=== PATIENT | male | born 1940 | race Caucasian/White ===

== ENCOUNTER 2017-06-08 08:29 | Inpatient (IN) | payer OTHER, MEDICARE ==
[2017-05-18 17:20] LABS: PLATELET COUNT 156 10^3/uL (150-400)
[~2017-06-08 08:29] MED LIST: ROPIVACAINE 0.2% 80 MG, EPINEPHrine 0.2 MG, KETOROLAC TROMETHAMINE 30 MG in SYRINGE 0 ML IU ONE; TRANEXAMIC ACID 3,000 MG in NS 50 ML IRR ONE; VANCOMYCIN 1.25 GM in D5W 250 ML IV ONE; VANCOMYCIN PHARMACY TO DOSE MISC ONE
[2017-06-08] MEDS ORDERED: TRANEXAMIC ACID 3,000 MG/50 ML BAG IRR ONE (08:59)
--- NOTE | 2017-06-08 09:34 | PDHPUP ---
History & Physical Update H&P update statement: This history and physical update is based on an assessment of the patient which was completed after admission or registration (within 24 hours), but prior to the surgery/procedure. H&P update: H&P reviewed & patient examined, no change in patient's condition since H&P completed
--- NOTE | 2017-06-08 09:36 | PDANEPAE ---
ANE History of Present Illness 76 year old male w/ PMHx of CAD (has cardiac stents), A. Fib (following previous surgery, on Eliquis as outpatient - last dose on 06/04/2017), HTN, JAKI (w/ CPAP) and prior spine surgery x3 (confirmed hardware at L4 & L5) presents for right total hip arthroplasty. ANE Past Medical History - Cardiovascular History Hx Hypertension: Yes Hx Arrhythmias: Yes Hx Chest Pain: No Hx Coronary Artery / Peripheral Vascular Disease: Yes Hx CHF / Valvular Disease: No Hx Palpitations: No Cardiovascular History Comment: htn. afib x1 s/p back surgery. hyperlipidemia - Pulmonary History Hx COPD: No Hx Asthma/Reactive Airway Disease: No Hx Recent Upper Respiratory Infection: No Hx Oxygen in Use at Home: No Hx Sleep Apnea: Yes Sleep Apnea Screening Result - Last Documented: Positive Pulmonary History Comment: jaki positive- instructed pt to bring cpap to hospital - Neurologic History Hx Cerebrovascular Accident: No Hx Seizures: No Hx Dementia: No - Endocrine History Hx Diabetes: No - Renal History Hx Renal Disorders: No - Liver History Hx Hepatic Disorders: No - Neurological & Psychiatric Hx Hx Neurological and Psychiatric Disorders: No - Cancer History Hx Cancer: Yes Cancer History Comment: basal cell skin x1 - Congenital Disorder History Hx Congenital Disorders: No - GI History Hx Gastrointestinal Disorders: No - Other Health History Other Health History: wears glasses - Chronic Pain History Chronic Pain: Yes (right hip) - Surgical History Prior Surgeries: back surgeries x3. right knee torn meniscus repair. bilateral RTC repair. bilateral carpal tunnel. cardiac stents x 3 ANE Review of Systems Review of systems is: negative Review of Systems: - Exercise capacity Exercise capacity: >=4 METS METS (RN): 5 METS ANE Patient History - Allergies Allergies/Adverse Reactions: cefazolin [From Ancef] Allergy (Verified 06/08/17 09:53) Rash lincomycin HCl [From Lincocin] Allergy (Verified 06/08/17 09:53) cramps, severe bleeding and diarrhea sulfamethoxazole [From Bactrim] Allergy (Verified 06/08/17 10:41) erythema multiforma trimethoprim [From Bactrim] Allergy (Verified 06/08/17 09:53) erythema multiforma - Home Medications Home medications: home medication list seen and reviewed Home Medications: Cholecalciferol Vit D3 [Vitamin D3 (*)] 2,000 units PO BID 02/11/14 [Last Taken 12/20/17] Dutasteride [Avodart 0.5 MG (*)] 0.5 mg PO HS 02/11/14 [Last Taken 06/07/17 21: 00] Ezetimibe/Simvastatin [Vytorin 10-20 mg Tablet] 0.5 each PO HS 02/11/14 [Last Taken 06/07/17 21:00] Herbals/Supplements -Info Only 1 ea PO DAILY 02/11/14 [Last Taken 05/25/17] Multivitamins [Multivitamin (*)] 1 each PO DAILY 02/11/14 [Last Taken 05/25/17] Niacin ER [Niaspan 1000 mg (*)] 2,000 mg PO HS 02/11/14 [Last Taken 06/06/17] [place]ua-3 Fatty Acids [Fish Oil 1000 mg (*)] 3,000 mg PO DAILY 02/11/14 [Last Taken 05/25/17] Apixaban [Eliquis] 5 mg PO BID 05/11/17 [Last Taken 06/04/17] Aspirin [Aspirin 81mg (*)] 81 mg PO DAILY 05/11/17 [Last Taken 05/25/17] Doxazosin Mesylate [Cardura 1 MG (*)] 2 mg PO HS 05/11/17 [Last Taken 06/07/17 21:00] Hydrochlorothiazide [HCTZ (*)] 12.5 mg PO DAILY 05/11/17 [Last Taken 06/07/17 09 :00] Magnesium Hydroxide [Milk of Magnesia] 30 ml PO HS 05/11/17 [Last Taken 06/06/17 ] Olmesartan Medoxomil [Benicar 20 mg (*)] 40 mg PO DAILY 05/11/17 [Last Taken 07/24 09:00] amLODIPine BESYLATE [Norvasc 10 mg (*)] 10 mg PO HS 05/11/17 [Last Taken 21:00] - NPO status NPO Status: no food or drink >8 hours - Anes Hx Anes Hx: no prior problems - Smoking Hx Smoking Status: Former smoker Marijuana use: No - Family Anes Hx Family Anes Hx: neg - N/A Family Hx Anesthesia Complications: none ANE Labs/Vital Signs - Labs Result Diagrams: 05/18/17 16:41 12/13/17 16:41 - Vital Signs Vital Signs: reviewed preoperatively; see RN documention for details Height: 176.53 cm Weight: 86.183 kg ANE Physical Exam - Airway Neck exam: FROM Mallampati Score: Class 2 Mouth exam: normal dental/mouth exam - Pulmonary Pulmonary: no respiratory distress - Cardiovascular Cardiovascular: regular rate and rhythym - ASA Status ASA Status: III ANE Anesthesia Plan Anesthesia Plan: general endotracheal anesthesia (General as back-up plan if spinal unsuccessful given patient's prior history of spine surgery x 3.), MAC, spinal Total IV Anesthesia: No
[2017-06-08] MEDS ORDERED: ACETAMINOPHEN 325 MG TAB PO ONE (09:38)
[2017-06-08] MEDS ORDERED: FAMOTIDINE 20 MG TAB PO ONE (09:38)
[2017-06-08] MEDS ORDERED: DEXAMETHASONE 4 MG/ML VIAL IVP ONE (09:38)
[2017-06-08] MEDS ORDERED: LR 1,000 ML IV ONE (09:40)
[2017-06-08] MEDS ORDERED: LIDOCAINE 1% 2 ML INJ ID PRN (09:40)
[2017-06-08] MEDS ORDERED: MIDAZOLAM 2 MG/2 ML VIAL ONE (11:02)
[2017-06-08] MEDS ORDERED: MIDAZOLAM 2 MG/2 ML VIAL IVP ONE (11:03)
[2017-06-08] MEDS ORDERED: PROPOFOL/EMULSION 500 MG/50 ML BOTTLE IV ONE ×2 (11:06→11:57)
[2017-06-08] MEDS ORDERED: fentaNYL 100 MCG/2 ML INJ IVP PRN (12:13)
[2017-06-08] MEDS ORDERED: ONDANSETRON 4 MG/2 ML VIAL IVP PRN ×2 (12:13→12:47)
[2017-06-08] MEDS ORDERED: HYDROmorphONE/DILAUDID 1 MG/ML INJ IVP PRN (12:13)
[2017-06-08] MEDS ORDERED: NALOXONE HCL 0.4 MG/ML INJ IVP PRN (12:13)
[2017-06-08] MEDS ORDERED: PHENYLEPHRINE HCL 100 MCG/ML SYR IVP PRN (12:13)
[2017-06-08] MEDS ORDERED: LR 500 ML IV PRN (12:13)
[2017-06-08] MEDS ORDERED: LABETALOL HCL 5 MG/ML 20 ML MDV IVP PRN (12:13)
[2017-06-08] MEDS ORDERED: epHEDrine SULFATE 10 MG/ML SYR IVP PRN (12:13)
[2017-06-08] MEDS ORDERED: diphenhydrAMINE 25 MG CAP PO PRN (12:47)
[2017-06-08] MEDS ORDERED: MAGNESIUM HYDROXIDE 30 ML UDCUP PO PRN (12:47)
[2017-06-08] MEDS ORDERED: LACTULOSE 20 GM/30 ML UDCUP PO PRN (12:47)
[2017-06-08] MEDS ORDERED: METOCLOPRAMIDE 10 MG/2 ML VIAL IVP PRN (12:47)
[2017-06-08] MEDS ORDERED: DIPHENOXYLATE/ATROPINE LOMOTIL 1 TAB PO PRN (12:47)
[2017-06-08] MEDS ORDERED: BISACODYL 10 MG SUPP PR PRN (12:47)
[2017-06-08] MEDS ORDERED: TEMAZEPAM 15 MG CAP PO PRN (12:47)
[2017-06-08] MEDS ORDERED: PROMETHAZINE HCL 25 MG SUPPR PR PRN (12:47)
[2017-06-08] MEDS ORDERED: ONDANSETRON DISINTEGRATING 4 MG TAB PO PRN (12:47)
[2017-06-08] MEDS ORDERED: PROMETHAZINE HCL 25 MG/ML INJ IVP PRN (12:47)
[2017-06-08] MEDS ORDERED: POLYETHYLENE GLYCOL 3350 17 GM PKT PO PRN (12:47)
--- NOTE | 2017-06-08 12:47 | POSTOPPROG ---
Post Op Note Date of Operation: 06/08/17 Surgeon: Gillian Blair [employer] Manager: kristina blair Anesthesiologist: dr. mane Anesthesia: Spinal Pre-op Diagnosis: right hip OA Post-op Diagnosis: same Indication: R hip pain due to OA that failed conservative measures Procedure: R DYLAN ant approach Findings: severe hip OA Inf/Abcess present in the surg proc area at time of surgery?: No EBL: 100-500
[2017-06-08] MEDS: LR 1,000 ML IV SCH ×2 (14:30→23:55)
[2017-06-08] MEDS: CYCLOBENZAPRINE 10 MG TAB PO PRN (14:57)
[2017-06-08] MEDS: oxyCODONE IR 5 MG TAB PO PRN ×3 (15:44→23:58)
[2017-06-08 16:10] VITALS: RESP 16
[2017-06-08] MEDS: ACETAMINOPHEN 325 MG TAB PO SCH ×2 (17:52→23:55)
--- NOTE | 2017-06-08 18:25 | POSTANESTH ---
Post Anesthetic Evaluation Cardiovascular Status: Normal, Stable, Similar to Pre-Op Cond Respiratory Status: Normal, Stable, Similar to Pre-op Cond. Level of Consciousness/Mental Status: Can Participate in Eval, Alert and Oriented Pain Control: Adequate, Prn Tx Ordered Nausea/Vomiting Control: Adequate, Prn Tx Ordered Complications Possibly Related to Anesthesia: None Noted
[2017-06-08] MEDS: APIXABAN 5 MG TAB PO SCH (20:14)
[2017-06-08] MEDS: FAMOTIDINE 20 MG TAB PO SCH (20:14)
[2017-06-08] MEDS: SENNOSIDES/DOCUSATE SODIUM TAB PO SCH (20:15)
[2017-06-08] MEDS ORDERED: DUTASTERIDE 0.5 MG CAP PO SCH (21:00)
[2017-06-08] MEDS ORDERED: EZETIMIBE PO SCH (21:00)
[2017-06-08] MEDS ORDERED: SIMVASTATIN PO SCH (21:00)
[2017-06-08] MEDS ORDERED: NIACIN ER 1000 MG TAB.ER PO SCH (21:00)
[2017-06-08] MEDS ORDERED: DOXAZOSIN MESYLATE 1 MG TAB PO SCH (21:00)
[2017-06-08] MEDS ORDERED: VANCOMYCIN 1.25 GM in D5W 250 ML IV ONE (22:00)
[2017-06-08] MEDS ORDERED: VANCOMYCIN HCL/NORMAL SALINE 250 ML IV ONE (23:00)
[2017-06-09] MEDS: CYCLOBENZAPRINE 10 MG TAB PO PRN ×2 (01:58→10:20)
--- NOTE | 2017-06-09 05:16 | GOP ---
[f rep st] OPERATIVE REPORT DATE OF OPERATION: 06/08/2017 SURGEON: Db Beasley MD TYPING ELEMENT MACHINE OPERATOR: Madeline Beasley PA-C ANESTHESIA: Spinal. PREOPERATIVE DIAGNOSIS: Right hip osteoarthritis. POSTOPERATIVE DIAGNOSIS: Right hip osteoarthritis. PROCEDURE PERFORMED: Total hip arthroplasty with x-ray. FINDINGS: ESTIMATED BLOOD LOSS: 200 cc. INDICATIONS: The patient has progressively worsening arthritis of the hip which has failed medical m anagement. The patient understands the treatment options including continued non-operative care and has selected surgical intervention. The patient has decided to undergo total hip arthroplasty via th e direct anterior approach, understanding the risks of the procedure including, but not limited to, n eurovascular injury, infection, persistent pain, component wear and loosening, deep venous thrombosis , pulmonary embolism, limb length inequality, hip instability (including dislocation), and intra-oper ative fractures. DESCRIPTION OF PROCEDURE: After proper identification of the patient including verification and vipul ing the surgical site, the patient was brought to the operating room and placed in the supine positio n. All bony prominences were well padded. Anesthesia was induced without complication and intraveno us prophylactic antibiotics were administered prior to skin incision. The operative leg was placed in the Trumpf Arch table extension and the well leg in a Yellofin leg ho lder. The patient was prepped and draped in the usual sterile fashion. The C-arm was draped for int ra-operative fluoroscopy to check acetabular position, femoral component position including leg lengt h and femoral offset. Attention was then drawn to surgical exposure of the hip. An incision was made with a #10 Bard Kimball r blade starting 3 cm lateral and 3 cm distal to the anterior superior iliac spine measuring 8-10 cm and coursing distally toward the greater trochanter. The skin and subcutaneous tissues were divided sharply down to the fascia juan. The fascia juan was incised in line with the skin incision exposing the underlying tensor fascia juan muscle. The muscle was bluntly elevated from the fascia and the f irst extracapsular Cobra retractor was placed laterally at the junction of the superior femoral neck and greater trochanter. The lateral femoral circumflex vessels were identified, cauterized, and divi ded with the Aquamantys bipolar cautery. The deep investing fascia of the TFL was divided to allow p sheyla mobilization of the muscle preventing damage during the retraction. The reflected head of the rectus femoris muscle was elevated off the anterior hip capsule and a medial Cobra retractor was plac ed just proximal to the lesser trochanter. The anterior capsulotomy was made sharply from the superolateral acetabulum to the saddle junction of the superior femoral neck and greater trochanter, then coursing inferomedial towards the lesser troc hanter. The retractors were then placed in the intracapsular position for femoral neck osteotomy. C orresponding to pre-operative templating, the osteotomy was made with the oscillating saw carefully p rotecting the greater trochanter and soft tissues. The femoral head was removed from the acetabulum with a corkscrew and confirmed to be severely arthritic with exposed bone, deformity and osteophytes. Similar findings were confirmed in the acetabulum. The Arch table extension was then placed in 40 degrees external rotation. Attention was then drawn to the acetabular preparation. After placement of the anterior and posterio r Cobra retractors outside the labrum and intracapsular, the circumferential labrum was removed sharp ly. The foveal contents were then removed and hemostasis obtained with cautery. The first reamer selected was sized using the removed femoral head. Reaming began with medialization and then commenced in 2 mm increments at 45 degrees of abduction and 15 degrees of anteversion using fluoroscopic navigation. Reaming ceased 1 mm less than the definitive acetabular component and juana esponded to the pre-operative templating. The final acetabular component was inserted using fluorosc opy to achieve proper orientation yielding excellent purchase and stability in the acetabulum. The f inal acetabular liner was then placed and its seating confirmed. Attention was then turned to the femur. The Arch table extension was placed in extension and adducti on, delivering the osteotomized femoral neck into the wound. A 2-pronged femoral elevator was placed at the calcar and another at the tip of the greater trochanter. The posterolateral capsule was rele ased with cautery allowing mobilization of the femur lateral and anterior for preparation. The exter nal rotators were visualized and preserved. A curette and rongeur were used to open the starting poi nt for broaching. Serial broaching started with the #0 broach and ended with the broach that exhibit ed excellent fit in the proximal femur. A change in pitch during mallet strikes was accompanied by t he inability to advance the broach any further. The trial reduction was performed and fluoroscopic n avigation was utilized to check limb length. Adjustments were made to equalize limb length according ly. After the final trials were accepted they were removed and the wound was copiously lavaged. The femo ral component was seated to the same depth as the final broach and the femoral head was impacted onto the clean trunnion. The hip was then reduced for the final time and once more fluoroscopy was used to check that limb length equality was achieved. The wound was irrigated and closed in layers, the fascia juan with 2-0 Quill, the subcutaneous tissue with 2-0 Quill, and the skin with Dermabond. Sterile dressings were applied. Final sharps and spon ge counts were accurate. The patient was then transferred to a hospital bed and brought [facility] in stable condition. PROCEDURE PERFORMED: Right total hip arthroplasty. IMPLANTS: Accolade II, size 8 at 127. Acetabular component a 60 mm Tritanium. The liner is a Tride nt X3, 36 mm. The head is a Biolox Delta, 36 mm +0. /[id number]/MODL
[2017-06-09] MEDS: oxyCODONE IR 5 MG TAB PO PRN ×2 (05:19→10:20)
[2017-06-09] MEDS: ACETAMINOPHEN 325 MG TAB PO SCH (05:19)
[2017-06-09 07:50] VITALS: BP 128/66; PULSE 65; TEMP 98.2; O2SAT 93
[2017-06-09] MEDS: SENNOSIDES/DOCUSATE SODIUM TAB PO SCH (08:58)
[2017-06-09] MEDS: FAMOTIDINE 20 MG TAB PO SCH (08:58)
[2017-06-09] MEDS: APIXABAN 5 MG TAB PO SCH (08:59)
[2017-06-09] MEDS ORDERED: ASPIRIN 81 MG CHEWABLE TAB PO SCH ×2 (09:00)
[2017-06-09] MEDS ORDERED: OLMESARTAN MEDOXOMIL 20 MG TAB PO SCH (09:00)
[2017-06-09] MEDS ORDERED: HYDROCHLOROTHIAZIDE 12.5 MG CAP PO SCH (09:00)
--- NOTE | 2017-06-09 12:51 | ASDISCHSUM ---
Discharge Information Plan Status:Home with No Needs Medically Cleared to Leave: Discharge Date:06/09/2017 11:54 AM CM D/C Disposition:Home, Routine, Self-Care ADT D/C Disposition:Home, Routine, Self-Care Projected Discharge Date:06/09/2017 11:54 AM Transportation at D/C: Discharge Delay Reason: Follow-Up Date:06/09/2017 11:54 AM Discharge Slot: Final Diagnosis: Placement Information Patient Contact Information Contact Name:OTTO Relationship: Address:[address] Work Phone: City:[place] Alternate Phone: [facility]/Zip Code:[place] [address] Email: Financial Information Financial Class: Primary Plan Desc:MEDICARE INPATIENT Primary Plan Number:[id number] Secondary Plan Desc:[employer]/MDR SUPPLEMENT Secondary Plan Number:[id number] Assessment Information CM Neuroradiologist Assessment CJR Did you go to joint Answers: Yes class? CM Note CM Note Notes: Wilmer is planning to discharge home with the support of his . They have both attended the Joint Class and seen the online video. Wilmer currently does not use a walker or cane, but has them handy for after surgery. He let me know that Dr. Beasley did not recommend any home health care services. Wilmer scored a 10 on the RAPT scale, meaning no additional interventions are needed during time of discharge. Date Signed: 06/01/2017 04:14 PM Electronically Signed By:Aileen Pan Intervention Information
--- NOTE | 2017-06-09 13:04 | SOAPPROG ---
SOAP Progress Note Assessment/Plan: Assessment: Patient is doing well s/p DYLAN pain is well controlled VTE ppx: recommend resuming ASA 81 mg daily and eliquis anemia: level expected initially postop d/c planning: d/c to home Plan: 06/09/17 13:03 Subjective: Steve is doing well today, denies SOB, chest pain and N/V. Objective: Vital Signs Temp Pulse Resp BP Pulse Ox 36.8 C 65 16 128/66 H 93 06/09/17 07:49 06/09/17 07:49 06/09/17 07:49 06/09/17 08:57 06/09/17 07:49 Laboratory Results 06/09/17 04:23 06/09/17 04:23 06/08/17 06/09/17 06/10/17 05:59 05:59 05:59 Intake Total 2967 Output Total 1050 400 Balance 1917 -400 no drainage from incision, +pf/df, +NVI ICD10 Worksheet Patient Problems: Problems Problem Status Onset Atherosclerosis Acute Atrial fibrillation Acute Primary localized osteoarthritis of right hip Acute
--- NOTE | 2017-06-09 18:29 | GDS ---
[f rep st] DISCHARGE SUMMARY ADMISSION DIAGNOSIS: Hip osteoarthritis. DISCHARGE DIAGNOSIS: Hip osteoarthritis. PROCEDURE: Right total hip arthroplasty. VTE PROPHYLAXIS: Recommend patient resume Eliquis and aspirin. BRIEF DESCRIPTION OF HOSPITAL STAY: Patient was admitted for an elective joint arthroplasty. The pa tient tolerated the procedure well and has passed physical therapy. The patient was given appropriat e antibiotic prophylaxis and venous thromboembolism prophylaxis. The patient's pain was well control led on oral pain medication, patient was holding down food, and had urinated. Decision was made to d ischarge the patient. The patient was given post-operative prescriptions pre-operatively. PLAN: Please follow up as scheduled with Dr. Beasley at [facility] in 3 weeks. /[id number]/MODL
== END 2017-06-09 11:54 | disposition home or self-care (01) | DRG 470 ==
LOC: F3E 08:53 → F3N 08:53
PROVIDERS: ADMIT Orthopaedic Surgery; ATTEND Orthopaedic Surgery
PROC: 0SR904Z Replacement of Right Hip Joint with Ceramic on Polyethylene Synthetic Substitute, Open Approach (ICD-10-PCS; principal; 2017-06-08 11:15)
DX: M16.11 Unilateral primary osteoarthritis, right hip (principal); I10 Essential (primary) hypertension; I25.10 Atherosclerotic heart disease of native coronary artery without angina pectoris; E78.5 Hyperlipidemia, unspecified; G47.33 Obstructive sleep apnea (adult) (pediatric); Z95.5 Presence of coronary angioplasty implant and graft
CPT/HCPCS: 97110-GP; 97116-GP; 97161-GP; 97165-GO; G8978-GP-CI; G8979-GP-CI; G8980-GP-CI; G8987-GO-CI; G8988-GO-CI; G8989-GO-CI; J0171; J1100; J1885; J2250; J2704; J2795; J3370

== ENCOUNTER 2017-06-24 13:57 | Inpatient (IN) | payer OTHER, MEDICARE ==
[2017-06-24] MEDS ORDERED: ONDANSETRON DISINTEGRATING 4 MG TAB PO PRN (15:02)
[2017-06-24] MEDS ORDERED: LACTULOSE 20 GM/30 ML UDCUP PO PRN (15:02)
[2017-06-24] MEDS ORDERED: ACETAMINOPHEN 325 MG TAB PO PRN (15:02)
[2017-06-24] MEDS ORDERED: ONDANSETRON 4 MG/2 ML VIAL IVP PRN (15:02)
[2017-06-24] MEDS ORDERED: BISACODYL 10 MG SUPP PR PRN (15:02)
[2017-06-24] MEDS ORDERED: POLYETHYLENE GLYCOL 3350 17 GM PKT PO PRN (15:02)
[2017-06-24] MEDS ORDERED: MAGNESIUM HYDROXIDE 30 ML UDCUP PO PRN (15:02)
[2017-06-24] MEDS ORDERED: ALTEPLASE 2 MG VIAL IVP PRN (15:31)
--- NOTE | 2017-06-24 15:47 | SOAPPROG ---
SOAP Progress Note Assessment/Plan: Assessment: 76 yo male w/ RLE cellulitis, s/p R DYLAN on 06/08/17 - developed cellulitis about 1 week ago, had multiple abx allergies, tried treating with doxycycline and dicloxacillin but developed rash to dicloxacillin, cellulitis not improving w/ doxycycline, today in f/u with increased edema, erythema. Decision made to admit for IV abx lisseth in light of his recent DYLAN on same side. -RLE cellulitis - will place on vancomycin. Spoke w/ ID Dr. Medrano - single coverage w/ vanco appropriate, will have pharmacy dose. Will place order for PICC line as Wilmer will likely need to stay on vanco for course of cellulitis if he responds due to his numerous allergies and lack of other options. If he responds well to vanco will possibly be able to arrange outpt infusion but need to monitor and assess closely in hospital for now. -s/p R DYLAN - on eliquis, oxycodone for pain management. Will have follow precautions/ req't per surgery. Also has cyclobenzaprine prn. -htn - on amlodipine, benicar, pressure have been on softer side at home since surgery, will follow and hold if bp low. -BPH - cont on avodart, doxazosin -hyperlipidemia/cad by heart scan - cont on fish oil, statin, vit d -h/o PAF -cont on eliquis, follow HR -dvt proph - eliquis -dispo - suspect will need >2MN due to ongoing cellulitis w/o successful treatment w/ oral abx in pt w/ recent DYLAN. Plan: 06/24/17 15:34 Subjective: Doing ok - was better earlier in the week on doxy and diclox but then developed a rash to diclox, this was stopped, doxy solo unfortunately not working and edema progressive, erythema worsening, discomfort increasing again. Had u/s neg for dvt. Objective: GEN: pleasant, A&O, spouse w/ him HEENT: perrl, eomi NEck: soft/supple CHest: cta b CV: rrr ABD: soft nt nd Ext: RLE w/ 2-3+ edema, tenderness, warmth and erythema. Neuro: a&O x 4, cooperative, good eye contact, CNII - XII grossly intact Psych: full range of affect, pleasant - Pending Discharge Pending Discharge Within 24 Hours: No ICD10 Worksheet Patient Problems: Problems Problem Status Onset Atherosclerosis Acute Atrial fibrillation Acute Primary localized osteoarthritis of right hip Acute
--- NOTE | 2017-06-24 17:22 | GHP ---
[f rep st] HISTORY AND PHYSICAL DATE OF ADMISSION: 06/24/2017 HISTORY OF PRESENT ILLNESS: The patient is a pleasant 76-year-old male, who is status post a right total hip arthroscopy replacement on 06/08/[address] Beasley at [facility]. He was doing well until 06/16 when he noticed some discomfort and swelling in his right lower extremity. He came into clinic the next day and, on exam, was noted to have some edema of his right lower extremity , also erythema down to his right ankle and extending up to his anterior rojo about 3-4 inches below his knee with some tightness around his calf. He has been on Eliquis for history of paroxysmal atrial fibrillation and, other than the day of surgery, has not missed doses of this. Given concern for possible DVT, he was sent for right lower extremity ultrasound, which was negative, and he was started on doxycycline and dicloxacillin. He, unfortunately, has numerous antibiotic allergies, and options for treating him are limited. He was initially doing better. The swelling went down. The erythema went down. He came in to clinic for followup as instructed, and the redness and swelling had improved. However, he had developed a rash on his arms, his back and his chest. Given possible interaction with the penicillin family in the past, his dicloxacillin was discontinued. He was continued on doxycycline with followup today to see how he is progressing on single coverage with doxycycline. Unfortunately, he reports that over the last 24 hours or so the swelling has increased again, as well as the erythema and discomfort. He has been trying to elevate his leg; however, if he elevates too far, it is bothersome for his hip and he has more discomfort there. Reviewed all of his allergies and the possible options, and the best decision at this point was felt to admit him to the hospital for IV antibiotics to make sure to get the cellulitis under control, especially given this is his right lower extremity, which is the same leg where he had his recent total hip replacement. PAST MEDICAL HISTORY: Significant for hyperlipidemia, coronary artery disease, status post PR 2003, status post stents x3 to LAD, allergic rhinitis, BPH, hypertension, pneumonia, renal cysts, congenital cystic kidney disease, paroxysmal atrial fibrillation, obstructive sleep apnea, chronic venous stasis, and spinal stenosis. ALLERGIES: Include Ancef which was a rash, Lanacane which caused cramps and bleeding diarrhea, azithromycin causing flushing, Bactrim giving a rash, Augmentin rash, dicloxacillin fixed drug reaction. PAST SURGICAL HISTORY: Includes a laminotomy in 2011, bilateral carpal tunnel surgery in 1999, right knee arthroscopy in 1992, right shoulder surgery in 1996 and total right hip 06/08/2017. FAMILY HISTORY: Father significant with hypertension and coronary artery disease. Mom hypertension and coronary artery disease. SOCIAL HISTORY: He is a former smoker. It has been many, many years since he last smoked. He is , has a son in the area. Rare alcohol. is very involved in his care. He exercises regularly with cycling. REVIEW OF SYSTEMS: GENERAL: He denies fevers or chills but has been continuing to have quite a bit of pain status post his right total hip. ENT: Denies changes in hearing. No ear pain, sore throat, nasal congestion. RESPIRATORY: Denies shortness of breath, cough, wheezing. CARDIOVASCULAR: Denies palpitations, irregular heartbeat, chest pain. GASTROINTESTINAL: No change in stool. Denies constipation, nausea, vomiting, diarrhea, or heartburn. MUSCULOSKELETAL: Positive for right hip discomfort. Also right lower extremity discomfort. See HPI above. SKIN: Significant for a few lesions left over from his reaction to dicloxacillin on his arms, chest and back pain. NEUROLOGIC: Denies any problems with fainting, dizziness, or loss of consciousness. PSYCHIATRIC: No problematic mood changes. PHYSICAL EXAMINATION: VITAL SIGNS: In office, blood pressure 92/50, temperature 97.8, heart rate 71, respiration rate 16. He is 98% on room air. GENERAL: Pleasant, well-hydrated, no acute distress in room with spouse. HEAD : NC/AT. EYES: EOMI. Pupils symmetric. THROAT: No erythema. NECK: Soft and supple. No lymphadenopathy appreciated. SKIN: He does have chronic stasis changes bilateral lower extremities but right lower extremity with erythema from mid rojo down through ankle. Warmth throughout and edema with tightness to his whole lower extremity from gastrocnemius posterior down. CARDIOVASCULAR: Regular rate and rhythm. Normal S1, S2. CHEST: Clear to auscultation bilaterally. ABDOMEN: Soft, nontender, nondistended. No HSM appreciated. EXTREMITIES: Please see above as far as right lower extremity. NEUROLOGIC: Alert and oriented. Cognitive exam grossly normal. PSYCHIATRIC: Mood and affect normal. Good eye contact. MEDICATIONS: Include amlodipine 10 mg p.o. daily, Eliquis 5 mg p.o. b.i.d., furosemide 25 mg daily, cyclobenzaprine 10 mg t.i.d. p.r.n., 20 mg 1 p.o. daily, ASA 81 mg p.o. daily, Avodart 0.5 daily, Benicar 40 mg p.o. daily, doxazosin 2 mg p.o. daily, fish oil 1000 mg t.i.d., fluticasone nasal spray p.r.n., lutein 20 mg capsule once a day, magnesium 500 one time daily, methyl folate 400 mcg 2 capsules p.o. daily, Niaspan 1000, 2 tabs daily, vitamin D 2000 international units daily, Vytorin 10/20, 1/2 tablet daily, Zyrtec 10 mg p.r.n., vitamin K2 100 mcg daily, oxycodone 5 mg 1 p.o. q.3-4 hours p.r.n. hip pain, Tylenol 325 mg 1 p.o. q.6 hours p.r.n. pain. ASSESSMENT AND PLAN: A 76-year-old male, status post total hip replacement on 06/08/2017, who developed cellulitis about 1 week ago, which is about 2 weeks after his surgery. He, unfortunately, has multiple medication allergies and has limited options to treat the cellulitis. He was tried as an outpatient with doxycycline and dicloxacillin but, unfortunately, developed a fixed drug reaction to the dicloxacillin. This was stopped. His progress at that point was good; however, he came back 3 days later for followup just on doxycycline and, unfortunately, now has increased edema and erythema again and feels like he is back to where he was a week ago. There are not many more options that we can give him for oral antibiotics, so after discussion about options and how to treat this more safely, a decision was made to admit him for IV antibiotics. PLAN BY PROBLEM: 1. Right lower extremity cellulitis. He will be started on IV vancomycin. I did discuss this with Dr. Medrano as well. She feels single coverage of vancomycin is appropriate. Will have pharmacy to dose. We will place order for a PICC line as the patient will likely need to stay on vancomycin for the course of his cellulitis, given his numerous medication allergies and lack of other options. If he responds well to vancomycin, hopefully, we will be able to arrange this to continue as an outpatient infusion but we need to monitor and assess his progress on this closely in the hospital for now with his brand new hip. 2. Status post right total hip arthroscopy. He will be continued on Eliquis, oxycodone for pain management. Fall precautions and recommendations per Surgery. PT/OT per Surgery allowances. Also has cyclobenzaprine p.r.n. 3. History of hypertension. Continue on amlodipine and Benicar. Pressures have been on the softer side at home since surgery. We will follow closely and hold blood pressure medications if low. 4. Benign prostatic hypertrophy. Continue on Avodart and doxazosin. 5. Hyperlipidemia/coronary artery disease by heart scan. Also, history of myocardial infarction, status post stents x3. Continue on official statin, vitamin D as an outpatient; he is also on niacin. 6. History of paroxysmal atrial fibrillation. Continue on Eliquis. Follow heart rate. 7. Deep vein thrombosis prophylaxis. On Eliquis. 8. Suspect he will need greater than 2 midnights for inpatient admission due to failure of outpatient treatment with p.o. antibiotics and limited choices. He needs IV antibiotics and monitoring to make sure he does respond to these. /[id number]/MODL MTDD
[2017-06-24 19:05] LABS: PLATELET COUNT 256 10^3/uL (150-400)
[2017-06-24] MEDS ORDERED: VANCOMYCIN 1.25 GM in D5W 250 ML IV ONE (19:30)
[2017-06-24] MEDS: SENNOSIDES/DOCUSATE SODIUM TAB PO SCH (20:03)
[2017-06-25 04:10] LABS: PLATELET COUNT 258 10^3/uL (150-400)
[2017-06-25] MEDS ORDERED: Herbals/Supplements -Info Only PO SCH (09:00)
[2017-06-25] MEDS ORDERED: ATORVASTATIN CALCIUM 10 MG TAB PO SCH (09:00)
[2017-06-25] MEDS: MULTIVITAMINS 1 EACH TAB PO SCH (09:58)
[2017-06-25] MEDS: APIXABAN 5 MG TAB PO SCH ×2 (09:58→21:34)
[2017-06-25] MEDS: ASPIRIN 81 MG CHEWABLE TAB PO SCH (09:58)
[2017-06-25] MEDS: HYDROCHLOROTHIAZIDE 12.5 MG CAP PO SCH (09:58)
[2017-06-25] MEDS: CHOLECALCIFEROL VIT D3 1,000 UNITS TAB PO SCH ×2 (09:59→21:29)
[2017-06-25] MEDS: OLMESARTAN MEDOXOMIL 20 MG TAB PO SCH (09:59)
[2017-06-25] MEDS: OMEGA-3 FATTY ACIDS 1,000 MG CAP PO SCH (10:00)
[2017-06-25] MEDS: SENNOSIDES/DOCUSATE SODIUM TAB PO SCH ×2 (10:02→21:49)
[2017-06-25] MEDS: VANCOMYCIN HCL/NORMAL SALINE 250 ML IV SCH ×2 (10:02→21:35)
--- NOTE | 2017-06-25 11:45 | SOAPPROG ---
KINZA Progress Note Assessment/Plan: Assessment: Plan: 06/25/17 11:45 RLE cellulitis: now on vancomycin. Dr. Tipton had spoken to Dr. Medrano about this, but family is requesting formal consult. PICC line in place. He is better than when his symptoms started originally, but doesn't feel there is a distinct change in the last 24 hours. R hip arthoplasty: pain decreased. Remains on Eliquis. Hypertension: BP remains well-controlled. Subjective: Feeling well. RLE feels less tight to him than it had, and is less painful to stand on the that leg. Family would like ID to consult. Also states that the pain associated with his recent hip replacement suddenly stopped yesterday. Objective: Vital Signs Temp Pulse Resp BP Pulse Ox 36.6 C 59 L 16 121/58 H 93 06/25/17 07:29 06/25/17 07:29 06/25/17 07:29 06/25/17 09:59 06/25/17 07:29 Laboratory Results 06/25/17 03:25 06/24/17 18:50 06/24/17 06/25/17 06/26/17 05:59 05:59 05:59 Intake Total 200 Output Total 725 650 Balance -525 -650 General: well-appearing, NAD, alert, pleasant Lungs: clear bilaterally Cardiovascular: RRR without murmur Abdomen: +bowel sounds, soft Extremities: PICC line in RUE. RLE with trace edema, mild discomfort to touch. Area of bruising, erythema has decreased since original outline drawn. ICD10 Worksheet Patient Problems: Problems Problem Status Onset Atherosclerosis Acute Atrial fibrillation Acute Primary localized osteoarthritis of right hip Acute
--- NOTE | 2017-06-25 17:57 | ASMTCMCOM ---
CM Note CM Note Notes: Pt admitted s/p recent R total hip arthroscopy/replacement. Per MD notes, pt now w/ cellulitis, on Vanco, PICC in place. Pt awaiting ID consult. Pt is and lives w/ his supportive . He also has a son in the area. Pt will likely require IV antibiotics on discharge, unclear if pt will want home care vs outpt therapy. CM will cont to follow. Current Discharge Plan: To be deteremined Date Signed: 06/25/2017 05:56 PM Electronically Signed By:Caroline Alcaraz RN
[2017-06-25] MEDS: NIACIN ER 1000 MG TAB.ER PO SCH (21:27)
[2017-06-25] MEDS: DUTASTERIDE 0.5 MG CAP PO SCH (21:28)
[2017-06-25] MEDS: DOXAZOSIN MESYLATE 1 MG TAB PO SCH (21:28)
[2017-06-25] MEDS: EZETIMIBE 10 MG TAB PO SCH (21:28)
[2017-06-25] MEDS: amLODIPine BESYLATE 5 MG TAB PO SCH (21:29)
[2017-06-25] MEDS: PRAVASTATIN SODIUM 20 MG TAB PO SCH (21:38)
[2017-06-26] MEDS: OMEGA-3 FATTY ACIDS 1,000 MG CAP PO SCH (08:39)
[2017-06-26] MEDS: OLMESARTAN MEDOXOMIL 20 MG TAB PO SCH (08:39)
[2017-06-26] MEDS: CHOLECALCIFEROL VIT D3 1,000 UNITS TAB PO SCH ×2 (08:40→21:51)
[2017-06-26] MEDS: MULTIVITAMINS 1 EACH TAB PO SCH (08:40)
[2017-06-26] MEDS: HYDROCHLOROTHIAZIDE 12.5 MG CAP PO SCH (08:41)
[2017-06-26] MEDS: ASPIRIN 81 MG CHEWABLE TAB PO SCH (08:41)
[2017-06-26] MEDS: SENNOSIDES/DOCUSATE SODIUM TAB PO SCH ×2 (08:41→21:55)
[2017-06-26] MEDS: APIXABAN 5 MG TAB PO SCH ×2 (08:41→21:51)
--- NOTE | 2017-06-26 10:17 | GCON ---
[f rep st] CONSULTATION INFECTIOUS DISEASE CONSULTATION DATE OF CONSULTATION: 06/26/2017 REFERRING PHYSICIAN: Briana Bosch MD REASON FOR CONSULTATION: Right lower extremity cellulitis. CHIEF COMPLAINT: Redness and pain in the right lower extremity. HISTORY OF PRESENT ILLNESS: This is a 76-year-old male with a past medical history signifi cant for dyslipidemia, coronary artery disease, OH, who was admitted on the due to ongoing redne ss and erythema of his right lower extremity. His history dates back to June 08 when he underwen t a right total hip arthroplasty by Dr. Beasley. He was doing well postoperatively. He had some b listers that had developed on either side of the dressing. About a week later, he went and saw Dr. Luis A dougherty on the or . Apparently by the , he started to notice some discomfort and swell ing of the right leg. He came in to see his primary care doctor the next day, and there was noted to be some erythema from the right leg down to the ankle. He had an ultrasound done to exclude a DVT, which was negative, and he was placed on doxycycline and dicloxacillin. He had taken that for severa l days, but then noticed a rash on the dicloxacillin and so this was discontinued and he was only on doxycycline last week. While he was on both antibiotics, the redness had improved and the swelling i mproved, but then when he was on monotherapy with doxycycline, the redness returned again. He was th en admitted on the for IV antibiotics. He was started on vancomycin. Since being on therapy, jihan jensen has had a good response to therapy with near resolution of the erythema involving his right leg and foot. He continues to have swelling of the right leg, which is causing him some tightness and disco mfort, but overall he feels like he is feeling better. He has not had any fevers or shaking chills t hus far. Infectious Disease is now consulted for further evaluation and opinion. REVIEW OF SYSTEMS: GENERAL: Denied any fever or shaking chills. HEAD: No headaches. EYES: No ch anges in vision. ENT: No sore throat, difficulty swallowing, ear pain, or ear drainage. CARDIOVASC ULAR: No chest pain or rapid heart beat. RESPIRATORY: No shortness of breath, cough, or sputum pro duction. ABDOMEN: No nausea, vomiting, abdominal pain, or diarrhea. : He is having some trouble starting the flow of urine, and he feels there is some incomplete emptying of the urine, as well, ov er the past couple of days since being hospitalized. He has not been moving around much while being here, as well. BACK: He denies any back pain or flank pain. MUSCULOSKELETAL: No other joint pains or muscle aches. He feels that his right hip is doing well. He has Steri-Strips in place, and ther e has been no drainage or redness around there. SKIN: As above. Rest of 10-point review of systems essentially negative, except for above. PAST MEDICAL HISTORY: Significant for hypertension; BPH; allergic rhinitis; coronary artery disease, status post OH in 2003; dyslipidemia; JAKI; chronic venous stasis; congenital cystic kidney disease; paroxysmal atrial fibrillation; spinal stenosis. PAST SURGICAL HISTORY: Significant for 3 stents to the LAD, laminotomy in 2011, bilateral carpal vickey lisa surgery, right knee arthroscopy, right shoulder surgery, and total right hip arthroplasty. ALLERGIES: Ancef gave a rash. Bactrim gave a rash. Augmentin a rash. Dicloxacillin a rash. Azith romycin is listed as causing flushing, but he states that he was also on niacin and he thinks it was due to that. He states he does not recall having been re-exposed to azithromycin. SOCIAL HISTORY: He is a former smoker. Denies alcohol. Lives with his . He has not left [employer] recently. He regularly cycles. FAMILY HISTORY: Significant for hypertension and coronary artery disease. MEDICATIONS: As per AUG. PHYSICAL EXAMINATION: VITAL SIGNS: Temperature current 36.5, pulse is 69, blood pressure 119/61, sa turations are 94% on room air, respiratory rate16. GENERAL: He is resting in bed, in no acute respi ratory distress. Awake, alert, and oriented x3. HEENT: Head is normocephalic, atraumatic. Eyes: Pupils equally round and reactive to light. No conjunctival injection. No petechiae noted. Orophar ynx is clear. There is no posterior erythema or thrush. CARDIOVASCULAR: S1, S2. Regular rate and rhythm. He has a soft systolic murmur appreciated. RESPIRATORY: Clear to auscultate bilaterally. No rhonchi or rales appreciated. ABDOMEN: Positive bowel sounds in all 4 quadrants. Soft, nontende r, nondistended. No organomegaly appreciated. EXTREMITIES: He has right lower extremity edema note d. There is some improvement in the swelling. There is some wrinkling noted. SKIN: He has chronic venous stasis dermatitis noted bilaterally, right worse than left. He has some mild ecchymosis area located over the anterior right leg, as well, and he states that occurred after he had the ultrasoun d done. He has very minimal, if any, residual erythema or cellulitis noted, perhaps possibly on the lower part of the leg medially. There is again some thickening of the skin noted and some mild tende rness on palpation. The skin is mildly warm, but not hot. There is no erythema over the foot. He h as dry skin and calluses noted over the toes region and the plantar surface. He has some onychomycos is, as well. No tenia pedis noted. Right hip surgical site has Steri-Strips in place. There is gabriel e evidence of some blisters that have popped already and are already scabbed and looks appear to be i n the healing process. There is no acute cellulitis noted. There is no obvious drainage noted there , as well, and not really tender to palpate around the surgical incision site. There is some mild sw elling there noted. ASSESSMENT: Right lower extremity cellulitis. PLAN: I think at this point he has had really good clinical response to IV vancomycin with minimal r esidual erythema noted. I think he can transition over to oral clindamycin to complete therapy. Wou ld discontinue PICC line. Discussed the importance of lower extremity elevation. Also discussed yesenia ology and pathogenesis of these types of infections, the importance of skin care, and the strategies to reduce skin infections. Side effects of the therapy were discussed in detail with the patient. R alcidesd plan of care in detail. Care coordinated with his RN. Care coordinated with his primary car e team. Thank you very much for providing this opportunity to care for your patient in consultation. /[id number]/MODL
--- NOTE | 2017-06-26 11:05 | SOAPPROG ---
KINZA Progress Note Assessment/Plan: Assessment: Plan: 06/25/17 11:45 RLE cellulitis: now on vancomycin. Dr. Tipton had spoken to Dr. Medrano about this, but family is requesting formal consult. PICC line in place. He is better than when his symptoms started originally, but doesn't feel there is a distinct change in the last 24 hours. R hip arthoplasty: pain decreased. Remains on Eliquis. Hypertension: BP remains well-controlled. 06/26/17 11:05 RLE cellulitis: has had good response to vancomycin. Appreciate ID input. Will switch over to PO clindamycin today and see how he does. His is not comfortable coming to get him today due to the weather, so this will give us time to see if he tolerates the clindamycin. Will not d/c PICC for now. R hip arthroplasty: Mobilizing slowly. On Eliquis. Hypertension: well-controlled. Subjective: Feeling well. Has walked a couple of times around the unit. Hip feeling ok, just a little sore. RLE still feels a little tight. Objective: Vital Signs Temp Pulse Resp BP Pulse Ox 36.5 C 69 16 119/61 94 06/26/17 00:00 06/26/17 08:00 06/26/17 08:00 06/26/17 08:41 06/26/17 08:00 Laboratory Results 06/25/17 03:25 06/24/17 18:50 06/25/17 06/26/17 06/27/17 05:59 05:59 05:59 Intake Total 200 810 Output Total 725 1650 550 Balance -525 -840 -550 General: well-appearing, good spirits Lungs: clear bilaterally CV: RRR without murmur Abdomen: +bowel sounds, soft, NT Extremities: RLE with minimal edema, no erythema or tenderness. LLE without edema ICD10 Worksheet Patient Problems: Problems Problem Status Onset Atherosclerosis Acute Atrial fibrillation Acute Primary localized osteoarthritis of right hip Acute
[2017-06-26] MEDS: VANCOMYCIN HCL/NORMAL SALINE 250 ML IV SCH (11:13)
[2017-06-26] MEDS: CLINDAMYCIN 150 MG CAP PO SCH ×3 (12:02→21:50)
[2017-06-26] MEDS: EZETIMIBE 10 MG TAB PO SCH (21:50)
[2017-06-26] MEDS: amLODIPine BESYLATE 5 MG TAB PO SCH (21:50)
[2017-06-26] MEDS: DOXAZOSIN MESYLATE 1 MG TAB PO SCH (21:51)
[2017-06-26] MEDS: DUTASTERIDE 0.5 MG CAP PO SCH (21:51)
[2017-06-26] MEDS: NIACIN ER 1000 MG TAB.ER PO SCH (21:57)
[2017-06-26] MEDS: PRAVASTATIN SODIUM 20 MG TAB PO SCH (21:58)
[2017-06-27] MEDS: CLINDAMYCIN 150 MG CAP PO SCH ×2 (05:30→15:32)
[2017-06-27 08:43] VITALS: PULSE 61; RESP 16; TEMP 98.1; O2SAT 95
[2017-06-27] MEDS: APIXABAN 5 MG TAB PO SCH (09:42)
[2017-06-27] MEDS: CHOLECALCIFEROL VIT D3 1,000 UNITS TAB PO SCH (09:42)
[2017-06-27] MEDS: ASPIRIN 81 MG CHEWABLE TAB PO SCH (09:42)
[2017-06-27] MEDS: MULTIVITAMINS 1 EACH TAB PO SCH (09:42)
[2017-06-27] MEDS: HYDROCHLOROTHIAZIDE 12.5 MG CAP PO SCH (09:42)
[2017-06-27] MEDS: OLMESARTAN MEDOXOMIL 20 MG TAB PO SCH (09:43)
[2017-06-27] MEDS: OMEGA-3 FATTY ACIDS 1,000 MG CAP PO SCH (09:43)
[2017-06-27] MEDS: SENNOSIDES/DOCUSATE SODIUM TAB PO SCH (09:43)
[2017-06-27 09:46] VITALS: BP 123/71
--- NOTE | 2017-06-27 13:34 | SOAPPROG ---
SOAP Progress Note Assessment/Plan: Assessment:cellulitis, resolving Plan:Home on clindamycin. Follow up later this week. 06/27/17 13:33 Subjective: doing well Objective: Vital Signs Temp Pulse Resp BP Pulse Ox 98.1 F 61 16 123/71 H 95 06/27/17 08:00 06/27/17 08:00 06/27/17 08:00 06/27/17 09:43 06/27/17 08:00 Laboratory Results 06/25/17 03:25 06/24/17 18:50 06/26/17 06/27/17 06/28/17 05:59 05:59 05:59 Intake Total 810 200 Output Total 1650 1850 Balance -840 -1650 decreased redness, cellulitis improved. Tollerating oral clinda ICD10 Worksheet Patient Problems: Problems Problem Status Onset Atherosclerosis Acute Atrial fibrillation Acute Primary localized osteoarthritis of right hip Acute
--- NOTE | 2017-06-28 07:49 | GDS ---
[f rep st] DISCHARGE SUMMARY REASON FOR ADMISSION: Cellulitis of the right leg. DISCHARGE DIAGNOSIS: Cellulitis of the right leg. PROCEDURES: IV antibiotics. CONSULTATIONS: ID consultation. COMPLICATIONS: None. HOSPITAL COURSE: The patient was admitted because of persistent cellulitis of the right leg. He is intolerant of multiple oral antibiotics. Initially placed on vancomycin with improvement in his cell ulitis. ID consultation was obtained and it was suggested he switch to clindamycin. He was switched to clindamycin, had clindamycin for 1 day prior to discharge. He did well on the clindamycin. He h ad not develop diarrhea. He tolerated, had no additional rash. He had previously had a rash from pe nicillin that appeared to be consistent with a fixed drug eruption. The patient is being discharged with 7 more days of oral clindamycin. MEDICATIONS AT TIME OF DISCHARGE: Clindamycin 450 mg p.o. q.8 hours, niacin ER 1000 mg 2 tablets at h.s., Avodart 0.5 mg h.s., Vytorin 10/20 half a pill h.s., omega-3 fatty acids 3000 mg daily, multivi tamins, vitamin D3 2000 international units twice daily, herbal supplements, Cardura 2 mg at h.s., Be nicar 20 mg daily, hydrochlorothiazide 12.5 mg daily, Eliquis 5 mg twice daily, magnesium hydroxide 3 0 mg h.s., aspirin 81 mg daily, amlodipine 5 mg h.s. He will follow up in 1 week in the office. /[id number]/MODL
--- NOTE | 2017-06-28 08:37 | ASDISCHSUM ---
Discharge Information Plan Status:Home with No Needs Medically Cleared to Leave: Discharge Date:06/27/2017 03:53 PM CM D/C Disposition:Home, Routine, Self-Care ADT D/C Disposition:Home, Routine, Self-Care Projected Discharge Date:06/27/2017 03:53 PM Transportation at D/C:Family Discharge Delay Reason: Follow-Up Date:06/27/2017 03:53 PM Discharge Slot: Final Diagnosis: Placement Information Patient Contact Information Contact Name:OTTO Relationship: Address:[address] Work Phone: [facility]:[place] Alternate Phone: [facility]/Zip Code:[place] [address] Email: Financial Information Financial Class: Primary Plan Desc:MEDICARE INPATIENT Primary Plan Number:[id number] Secondary Plan Desc:[employer]/MDR SUPPLEMENT Secondary Plan Number:[id number] Assessment Information [facility] CM Progress Note CM Note CM Note Notes: Pt admitted s/p recent R total hip arthroscopy/replacement. Per MD notes, pt now w/ cellulitis, on Vanco, PICC in place. Pt awaiting ID consult. Pt is and lives w/ his supportive . He also has a son in the area. Pt will likely require IV antibiotics on discharge, unclear if pt will want home care vs outpt therapy. CM will cont to follow. Current Discharge Plan: To be deteremined Date Signed: 06/25/2017 05:56 PM Electronically Signed By:Caroline Alcaraz RN Intervention Information Intervention Type:*IM-Signed Date of Service:06/27/2017 01:58 PM Patient Type:Inpatient Staff Member:Aileen Pan Hours: Discipline: Severity: Comment:
== END 2017-06-27 15:53 | disposition home or self-care (01) | DRG 603 ==
LOC: F3N 15:42
PROVIDERS: ADMIT Internal Medicine; ATTEND Internal Medicine
DX: L03.116 Cellulitis of left lower limb (principal); I25.10 Atherosclerotic heart disease of native coronary artery without angina pectoris; I10 Essential (primary) hypertension; N40.0 Benign prostatic hyperplasia without lower urinary tract symptoms; G47.33 Obstructive sleep apnea (adult) (pediatric); I48.0 Paroxysmal atrial fibrillation; I25.2 Old myocardial infarction; Z87.891 Personal history of nicotine dependence; Z95.5 Presence of coronary angioplasty implant and graft; Z87.01 Personal history of pneumonia (recurrent); Z96.641 Presence of right artificial hip joint
CPT/HCPCS: C1751; J3370

== ENCOUNTER → 2018-03-24 | Outpatient (CLI) | payer OTHER, MEDICARE | LOC: FIMAGING 15:13 | PROVIDERS: ATTEND Internal Medicine | DX: R05 Cough (principal); J98.4 Other disorders of lung ==

== ENCOUNTER → 2018-06-29 | Outpatient (CLI) | payer OTHER, MEDICARE | LOC: BHFA 09:00 | PROVIDERS: ATTEND Internal Medicine Interventional Cardiology | DX: R42 Dizziness and giddiness (principal) ==